=== PATIENT | female | born 1970 | race Caucasian/White ===

== ENCOUNTER 2019-08-25 21:29 | Emergency (ER) | payer SELFPAY ==
[~2019-08-25] VITALS: Ht 162.6 cm; Wt 86.2 kg
[2019-08-25 21:32] VITALS: BP 144/69; Ht 162.6 cm; Wt 86.2 kg
== END 2019-08-25 23:02 | disposition left against medical advice (07) ==
LOC: ED 21:29
DX: Z53.21 Procedure and treatment not carried out due to patient leaving prior to being seen by health care provider (principal)